=== PATIENT | female | born 1955 | race Caucasian/White ===

== ENCOUNTER 2016-08-20 13:51 | Outpatient (CLI) | payer MEDICARE, BC ==
[2016-08-20 15:44] LABS: ALT (SGPT) 26 U/L (8-55); AST (SGOT) 23 U/L (5-34); Albumin 4.1 g/dL (3.4-4.8); Alkaline Phosphatase 141 U/L (40-150); Anion Gap 15 mmol/L (10-20); BUN (Urea Nitrogen) 14 mg/dL (9.8-20.1); Bilirubin, Total 0.3 mg/dL (0.2-1.2); Calc. Creatinine Clearance 0 mL/min (70-130); Calcium 9.2 mg/dL (7.8-10.44); Carbon Dioxide 25 mmol/L (23-31); Cardiac Risk 3.4 (Less than 4.5); Chloride 106 mmol/L (98-107); Cholesterol 203 mg/dl (< 200 Desired); Estimated GFR-MDRD 86; Glucose 92 mg/dL (80-115); HDL Cholesterol 59 mg/dL (>60 Neg Risk); LDL Cholesterol, Calculated 127 mg/dL; Potassium 3.9 mmol/L (3.5-5.1); Protein, Total 7.1 g/dL (6.0-8.3); Sodium 142 mmol/L (136-145); Triglycerides 85 mg/dL (Less than 150)
[2016-08-20 15:53] LABS: #Basophils 0.1 thou/uL (0.0-0.2); #Eosinphils 0.1 thou/uL (0.0-0.7); #Lymphocytes 2.4 thou/uL (1.20-3.40); #Monocytes 0.4 thou/uL (0.11-0.59); #Neutrophils 4.8 thou/uL (1.40-6.50); %Eosinophils 1.4 % (0.0-10.0); %Lymphocytes 30.7 % (21.0-51.0); %Monocytes 5.6 % (0.0-10.0); %Neutrophils 61.3 % (42.0-75.0); Hemoglobin 12.5 g/dL (12.0-16.0); Mean Corpuscular Hemoglobin 27.6 pg (27.0-31.0); Mean Corpuscular Volume 86.1 fl (81.0-99.0); Mean Platelet Volume 9.4 fL (7.4-10.4); Platelet Count 185 thou/uL (130-400); RBC Distribution Width 12.8 % (11.5-14.5); Red Blood Cell (RBC) Count 4.54 mill/uL (4.20-5.40); White Blood Cell (WBC) Count 7.8 thou/uL (4.8-10.8)
[2016-08-20 16:00] LABS: Free T4 (Free Thyroxine) 0.79 ng/dL (0.70-1.48); Thyroid Stimulating Hormone 1.6801 uIU/mL (0.35-4.94)
[2016-08-20 16:05] LABS: Hemoglobin A1c 5.7 % (4.0-6.0)
[2016-08-20 22:15] LABS: Bilirubin Negative (Negative); Blood, Urine Small (Negative); Clarity SL HAZY (Clear); Glucose, Urine (Dipstick) Negative (Negative); Leukocyte Trace (Negative); Nitrite Negative (Negative); Protein, Urine (Dipstick) Negative (Neg-Trace); Urobilinogen 0.2 mg/dL (0.2-1.0)
[2016-08-20 22:17] LABS: RBC/HPF 0-3 HPF (0-3); WBC/HPF 0-3 HPF (0-3)
[2016-08-20 22:18] LABS: Squamous Epithelial 0-3 HPF (0-3)
[2016-08-20 22:20] LABS: Bacteria/HPF Rare-Few HPF (None Seen)
== END 2016-08-20 13:52 | disposition home or self-care (01) ==
LOC: NAV LAB 13:51
PROVIDERS: ATTEND Family Medicine
DX: R63.5 Abnormal weight gain (principal); I10 Essential (primary) hypertension; R35.8 Other polyuria
CPT/HCPCS: 36415; 80053; 80061; 81001; 82533; 83036; 84439; 84443; 84481; 85025

== ENCOUNTER 2019-03-01 12:23 | Outpatient (CLI) | payer MEDICARE, BC ==
--- NOTE | 2019-03-01 12:45 | RAD ---
EXAM: Right Rib series HISTORY: History of rib fracture COMPARISON: None FINDINGS: Multiple views of the right ribs shows a minimally displaced fracture of the right lateral seventh ri b. No underlying pleural thickening or pneumothorax are seen. IMPRESSION: Seventh rib fracture
== END 2019-03-01 12:24 | disposition home or self-care (01) ==
LOC: NAV RAD 12:23
PROVIDERS: ATTEND Family Medicine
DX: S22.41XD Multiple fractures of ribs, right side, subsequent encounter for fracture with routine healing (principal)

== ENCOUNTER 2021-07-09 16:58 | Outpatient (CLI) | payer MEDICARE, OTHER | END 2021-07-09 16:59 | disposition home or self-care (01) | LOC: NAV RAD 16:58 | PROVIDERS: ATTEND Family Medicine | DX: M79.671 Pain in right foot (principal); M19.071 Primary osteoarthritis, right ankle and foot; M24.674 Ankylosis, right foot; M89.9 Disorder of bone, unspecified; Z98.1 Arthrodesis status; Z87.81 Personal history of (healed) traumatic fracture ==